=== PATIENT | male | born 1970 | race Caucasian/White ===

== ENCOUNTER 2021-06-01 09:04 | Day surgery (SDCO) | payer OTHER ==
[~2021-06-01] VITALS: Ht 188 cm; Wt 115.2 kg
[~2021-06-01 09:04] MED LIST: COLACE100 MG PO; COLESTID1 GM PO; CREON DR 36,001 EACH PO; CRESTOR20 MG PO; CRESTOR5 MG PO; CYMBALTA 30MG C30 MG PO; LEXAPRO20 MG PO; LISINOPRIL 2.52.5 MG PO; LOPID600 MG PO; MEDROL 4MG DOSEP4 MG PO; METFORMIN HCL500 M3 PO; NORCO 10-325 T1 EACH PO; NORCO 5-325 TA1 EACH PO; PHENERGAN25 M1 PO; PRILOSEC20 MG PO; SIMVASTATIN20 MG PO; SYNTHROID150 MCG PO; VASCEPA1 GM PO; ZESTRIL5 MG PO; ZOCOR20 MG PO; ZOFRAN4 MG PO
[2021-06-01 09:57] LABS: BILIRUBIN NEGATIVE (NEGATIVE); BLOOD NEGATIVE Ery/uL (NEGATIVE); CLARITY CLEAR (CLEAR); COLOR YELLOW (YELLOW); GLUCOSE (U) 2+ mg/dL (NORMAL); LEUKOCYTES NEGATIVE Leu/uL (NEGATIVE); NITRITE NEGATIVE (NEGATIVE); PROTEIN 2+ mg/dL (NEGATIVE); SPECIFIC GRAVITY >=1.030 (1.001-1.030); UROBILINOGEN 0.2 mg/dL (0.2-1.0)
[2021-06-01 09:58] LABS: BASOPHIL 0.4 % (0-2); EOSINOPHIL 1.6 % (0-5); HCT 40.5 % (42.0-52.0); LYMPHOCYTE 6.6 % (15-48); MCV 81.5 fL (78.0-100.0); MONOCYTE 8.8 % (0-12); MPV 11.2 fL (6.0-9.5); NEUTROPHIL 82.4 % (41-80); NRBC 0; PLT 153 K/uL (150-400); RBC 4.97 M/uL (4.70-6.00); RDW 12.5 % (11.5-14.0); WBC 8.5 K/uL (4.0-10.5)
[2021-06-01 10:05] LABS: BACTERIA TRACE; URINARY WBC RARE
[2021-06-01 10:05] LABS: INR 0.92 (0.9-1.2); PROTHROMBIN TIME 11.8 SECONDS (11.8-13.4); PTT 29.7 SECONDS (24.4-34.7)
[2021-06-01 10:54] LABS: MCH 29.2 pg (25.0-31.0)
[2021-06-01 10:55] LABS: HGB 15.2 g/dl (13.2-18.0); MCHC 36.5 g/dL (32.0-36.0)
[2021-06-02 05:50] LABS: LACTIC ACID 0.9 mmol/L (0.4-1.9)
[2021-06-02 05:51] LABS: BUN 11 mg/dL (7-18); CREATININE 1.02 mg/dL (0.67-1.17); GLUCOSE 238 mg/dL (74-106)
[2021-06-02 05:52] LABS: CHLORIDE 95 mmol/L (98-107); CO2 (BICARBONATE) 18 mmol/L (21-32); POTASSIUM 4.8 mmol/L (3.5-5.1)
[2021-06-02 05:53] LABS: ALBUMIN 4.3 g/dL (3.4-5.0); BILIRUBIN - TOTAL 0.7 mg/dL (0.2-1.0); GLOBULIN (CALCULATION) 2.8 g/dL; TOTAL PROTEIN 7.1 g/dL (6.4-8.2)
[2021-06-02 05:54] LABS: ALKALINE PHOSHATASE 117 U/L (46-116); ALT 29 U/L (16-63); AST 33 U/L (15-37); LIPASE 105 U/L (73-393); MAGNESIUM 1.9 mg/dL (1.8-2.4)
[2021-06-02 05:55] LABS: C-REACTIVE PROTEIN >18.00 mg/dL (<=0.90)
[2021-06-02 16:44] LABS: BUN/CREAT RATIO (CALC) 12.8 RATIO; CREATININE 1.17 mg/dL (0.67-1.17); POTASSIUM 4.1 mmol/L (3.5-5.1)
[2021-06-03 05:17] LABS: ALBUMIN 2.7 g/dL (3.4-5.0); BILIRUBIN - TOTAL 0.7 mg/dL (0.2-1.0); BUN/CREAT RATIO (CALC) 16.3 RATIO; CREATININE 1.04 mg/dL (0.67-1.17); GLOBULIN (CALCULATION) 3.8 g/dL; POTASSIUM 3.7 mmol/L (3.5-5.1); TOTAL PROTEIN 6.5 g/dL (6.4-8.2)
[2021-06-04 06:42] LABS: BASOPHIL 0.8 % (0-2); EOSINOPHIL 4.5 % (0-5); HCT 35.4 % (42.0-52.0); HGB 12.1 g/dl (13.2-18.0); LYMPHOCYTE 13.7 % (15-48); MCH 29.4 pg (25.0-31.0); MCHC 34.2 g/dL (32.0-36.0); MPV 10.9 fL (6.0-9.5); NEUTROPHIL 70.4 % (41-80); NRBC 0; PLT 126 K/uL (150-400); RBC 4.12 M/uL (4.70-6.00); RDW 13.4 % (11.5-14.0); WBC 5.1 K/uL (4.0-10.5)
[2021-06-04 06:43] LABS: MCV 85.9 fL (78.0-100.0)
[2021-06-04 07:06] LABS: BUN/CREAT RATIO (CALC) 19.5 RATIO; CREATININE 0.77 mg/dL (0.67-1.17); POTASSIUM 3.9 mmol/L (3.5-5.1)
--- NOTE | 2021-06-04 12:33 | NUR ---
PT TO D/C HOME THIS DATE WITH NO NEEDS.
[2021-06-04] MEDS ORDERED: ONDANSETRON ODT4 MG PO (13:41)
[2021-06-04] MEDS ORDERED: NORCO 5-325 TA1 EACH PO (18:08)
== END 2021-06-04 17:25 | disposition home or self-care (01) ==
LOC: FER 09:04 → FMS 06-02 12:26
PROVIDERS: Emergency Medicine; ADMIT Family Medicine
DX: K85.90 Acute pancreatitis without necrosis or infection, unspecified (principal); K86.89 Other specified diseases of pancreas; E11.43 Type 2 diabetes mellitus with diabetic autonomic (poly)neuropathy; E11.65 Type 2 diabetes mellitus with hyperglycemia; E11.10 Type 2 diabetes mellitus with ketoacidosis without coma; E78.5 Hyperlipidemia, unspecified; I10 Essential (primary) hypertension; R94.31 Abnormal electrocardiogram [ECG] [EKG]; K76.0 Fatty (change of) liver, not elsewhere classified; N17.9 Acute kidney failure, unspecified; E87.1 Hypo-osmolality and hyponatremia; U07.1 COVID-19; E03.9 Hypothyroidism, unspecified; Z86.16 Personal history of COVID-19; Z88.0 Allergy status to penicillin
CPT/HCPCS: 36415; 36600; 80048; 80053; 80061; 81001; 82803; 83605; 83690; 83735; 84145; 85025; 85610; 85730; 86140; 93005; 94760; G0378; J1170; J1650; J1815; J2405; J2550; J7030; Q9967; U0002

== ENCOUNTER 2021-11-02 10:25 | Emergency (ER) | payer OTHER ==
[~2021-11-02] VITALS: Ht 188 cm; Wt 115.7 kg
[~2021-11-02 10:25] MED LIST changes: +ONDANSETRON ODT4 MG PO
[2021-11-02 12:16] LABS: LACTIC ACID 0.6 mmol/L (0.4-1.9)
[2021-11-02 12:39] LABS: BUN 11 mg/dL (7-18)
[2021-11-02 12:40] LABS: ALBUMIN 3.8 g/dL (3.4-5.0); ALKALINE PHOSHATASE 120 U/L (46-116); BILIRUBIN - TOTAL 1.7 mg/dL (0.2-1.0); CHLORIDE 92 mmol/L (98-107); CO2 (BICARBONATE) 16 mmol/L (21-32); GLOBULIN (CALCULATION) 3.8 g/dL; GLUCOSE 346 mg/dL (74-106); POTASSIUM 4.8 mmol/L (3.5-5.1); TOTAL PROTEIN 7.6 g/dL (6.4-8.2)
[2021-11-02 12:41] LABS: LIPASE 253 U/L (73-393); TRIGLYCERIDES >2000 mg/dL (<150)
[2021-11-02 12:51] LABS: BASOPHIL 0.3 % (0-2); EOSINOPHIL 0.2 % (0-5); LYMPHOCYTE 7.2 % (15-48); MCV 80.8 fL (78.0-100.0); MONOCYTE 7.1 % (0-12); MPV 11.4 fL (6.0-9.5); NEUTROPHIL 84.9 % (41-80); NRBC 0; PLT 157 K/uL (150-400); RDW 12.9 % (11.5-14.0); WBC 11.9 K/uL (4.0-10.5)
[2021-11-02 13:08] LABS: MCH 29.3 pg (25.0-31.0)
[2021-11-02 13:09] LABS: MCHC 36.4 g/dL (32.0-36.0)
[2021-11-02 13:10] LABS: HGB 15.1 g/dl (13.2-18.0)
== END 2021-11-02 20:32 | disposition other institution (70) ==
LOC: FER 10:25
PROVIDERS: Emergency Medicine
DX: K85.90 Acute pancreatitis without necrosis or infection, unspecified (principal); E87.1 Hypo-osmolality and hyponatremia; E11.9 Type 2 diabetes mellitus without complications; I10 Essential (primary) hypertension; E78.5 Hyperlipidemia, unspecified; Z28.310 Unvaccinated for COVID-19; Z88.0 Allergy status to penicillin; Z79.84 Long term (current) use of oral hypoglycemic drugs; Z79.899 Other long term (current) drug therapy
CPT/HCPCS: 36415; 80053; 83605; 83690; 84478; 85025; J2270; J2405; J7030; Q9967